=== PATIENT | female | born 1965 | race American Indian/Alaskan Native ===

== ENCOUNTER 2018-11-23 21:18 | Inpatient (IN) | payer BC ==
[2018-11-23 22:22] VITALS: BMI 33.2
[2018-11-23] MEDS ORDERED: Albuterol-Ipratrop 3 mg / 0.5 (3 ml) UD IH STA (22:37)
[2018-11-23 23:28] LABS: HEMOGLOBIN 11.9 g/dL (12.0-16.0); MEAN CELL VOLUME 88.6 fl (80.0-105.0); MEAN CORPUSCULAR HEMOGLOBIN 29.4 pg (25.0-35.0); MEAN CORPUSCULAR HGB CONC 33.1 g/dl (31.0-37.0); MEAN PLATELET VOLUME 10.5 fl (7.0-11.0); RBC 4.05 10^6/uL (3.5-6.1); RED CELL DISTRIBUTION WIDTH 13.9 % (11.5-14.5)
[2018-11-23 23:32] LABS: ALB/GLOB RATIO 1.1 (1.1-1.8); ALBUMIN 4.2 g/dL (3.0-4.8); CALCIUM 9.9 mg/dL (8.4-10.5)
--- NOTE | 2018-11-24 00:32 | ED PDOC ---
Arrival/HPI - General Chief Complaint: Cough, Cold, Congestion Time Seen by Provider: 11/23/18 22:13 Historian: Patient - History of Present Illness Narrative History of Present Illness (Text): 11/24/18 00:32 Zayda Banda is a 53 year old female, with past medical history of asthma and prediabetic, who presents to the emergency department with a productive cough since last week. Patient states she was seen by her PMD for similar complaints 3 days prior and was prescribed Cefuroxime and Promethazine, but denies any significant improvement. Patient denies any fever, chills, chest pain, shortness of breath, nausea, vomiting, diarrhea, urinary symptoms, back pain, neck pain, headache, dizziness, or any other complaints. PMD: Dr. Botello Time/Duration: 1 week Symptom Onset: Gradual Symptom Course: Unchanged Context: Home Past Medical History - Provider Review Nursing Documentation Reviewed: Yes - Infectious Disease Hx of Infectious Diseases: None - Tetanus Immunization Tetanus Immunization: Unknown - Cardiac Hx Cardiac Disorders: Yes Hx Hypertension: Yes - Pulmonary Hx Respiratory Disorders: Yes Hx Asthma: Yes Other/Comment: post nasal drip - Neurological Hx Neurological Disorder: No - HEENT Hx HEENT Disorder: No - Renal Hx Renal Disorder: No - Endocrine/Metabolic Hx Endocrine Disorders: No Other/Comment: Pre diabetes - Hematological/Oncological Hx Blood Disorders: No - Integumentary Hx Dermatological Disorder: No - Musculoskeletal/Rheumatological Hx Musculoskeletal Disorders: Yes Hx Arthritis: Yes Hx Back Pain: Yes Hx Falls: No - Gastrointestinal Hx Gastrointestinal Disorders: No - Genitourinary/Gynecological Hx Genitourinary Disorders: No - Psychiatric Hx Emotional Abuse: No Hx Physical Abuse: No Hx Substance Use: No - Surgical History Hx Hysterectomy: Yes Hx Joint Replacement: Yes (TKR LEFT 2009) Hx Orthopedic Surgery: Yes (right knee sx/left knee) - Anesthesia Hx Anesthesia: Yes Hx Anesthesia Reactions: No Hx Malignant Hyperthermia: No - Suicidal Assessment Feels Threatened In Home Enviroment: No Family/Social History - Physician Review Nursing Documentation Reviewed: Yes Family/Social History: Unknown Family HX Smoking Status: Former Smoker Hx Alcohol Use: No Hx Substance Use: No Hx Substance Use Treatment: No Allergies/Home Meds Allergies/Adverse Reactions: Allergies No Known Allergies Allergy (Verified 05/29/13 09:19) Home Medications: Home Meds Medication Instructions Recorded Confirmed Lisinopril/Hydrochlorothiazide 1 tab PO BID 03/31/15 11/24/18 [Lisinopril-Hydrochlorothiazide 25 mg-20 mg] Amlodipine Besylate 10 mg PO DAILY 04/02/15 11/24/18 Simvastatin 10 mg PO HS 04/02/15 11/24/18 Ascorbate Calcium [Vitamin C] 500 mg PO DAILY 08/22/16 11/24/18 Atenolol [Tenormin] 25 mg PO HS 08/22/16 11/24/18 Cyanocobalamin (Vitamin B-12) 1,000 mcg PO DAILY 08/22/16 11/24/18 [B-12] Spironolactone [Aldactone] 25 mg PO DAILY 08/22/16 11/24/18 oxyCODONE/Acetaminophen [Percocet 1 tab PO Q6 PRN 08/22/16 11/24/18 5/325 mg Tab] Review of Systems - Physician Review All systems were reviewed & negative as marked: Yes - Review of Systems Constitutional: Normal. absent: Fevers Eyes: Normal Respiratory: Cough, Sputum Cardiovascular: Normal. absent: Chest Pain Gastrointestinal: Normal. absent: Abdominal Pain, Diarrhea, Nausea, Vomiting Genitourinary Female: Normal. absent: Dysuria, Frequency, Hematuria, Urine Output Changes Musculoskeletal: Normal. absent: Back Pain, Neck Pain Skin: Normal. absent: Rash Neurological: Normal. absent: Headache, Dizziness Physical Exam Vital Signs Reviewed: Yes Vital Signs Temp Pulse Resp BP Pulse Ox 11/23/18 22:07 98 F 69 21 136/74 95 Temperature: Afebrile Blood Pressure: Normal Pulse: Regular Respiratory Rate: Normal Appearance: Positive for: Well-Appearing, Non-Toxic, Comfortable Pain Distress: None Mental Status: Positive for: Alert and Oriented X 3 - Systems Exam Head: Present: Atraumatic, Normocephalic Pupils: Present: PERRL. No: Non-Reactive Extroacular Muscles: Present: EOMI. No: Entrapment Conjunctiva: Present: Normal Ears: Present: Normal, NORMAL TM, Normal Canal. No: Erythema, TM Bulging, Fluid, TM Perf Mouth: Present: Moist Mucous Membranes Pharnyx: Present: Normal. No: ERYTHEMA, EXUDATE, TONSILS ENLARGED, Peritonsilar Swelling, Uvular Deviation, Muffled/Hoarse Voice, [place], Soft Palate/Uvular Edema Nose (External): Present: Atraumatic Nose (Internal): Present: Normal Inspection Neck: Present: Normal Range of Motion. No: Meningeal Signs, MIDLINE TENDERNESS, Paraspinal Tenderness Respiratory/Chest: Present: Rhonchi (Rhonchi bilaterally). No: Respiratory Distress, Accessory Muscle Use Cardiovascular: Present: Regular Rate and Rhythm, Normal S1, S2. No: Murmurs Neurological: Present: GCS=15, CN II-XII Intact, Speech Normal Skin: Present: Warm, Dry, Normal Color. No: Rashes Psychiatric: Present: Alert, Oriented x 3, Normal Insight, Normal Concentration Medical Decision Making ED Course and Treatment: 11/24/18 00:49 Impression: Zayda Banda is a 53 year old female who presents to the emergency department with a productive cough. Plan: -- EKG -- Chest X-ray -- Labs -- Rapid influenza -- Duoneb -- Reassess and disposition Prior Visits: Notes and results from previous visits were reviewed. Progress Notes: Reviewed EKG, sinus bradycardia at [address]-segment elevations or depressions, no T-wave inversions, normal intervals. 11/24/18 03:45 Chest X-ray reviewed, shows no acute processes. 11/24/18 04:[address] Duarte, covering for Dr. Botello, who is aware and agrees with plan. Pt will go to [facility] observation for bronchitis and leukocytosis. Requests Dr. Lyons on consult. - Lab Interpretations Lab Results: Total Bilirubin 0.3 mg/dL (0.2-1.3) 11/23/18 23:00 AST 33 U/L (14-36) 11/23/18 23:00 ALT 26 U/L (7-56) 11/23/18 23:00 Alkaline Phosphatase 82 U/L (38-126) 11/23/18 23:00 Total Protein 7.9 g/dL (5.8-8.3) 11/23/18 23:00 Albumin 4.2 g/dL (3.0-4.8) 11/23/18 23:00 Globulin 3.7 gm/dL 11/23/18 23:00 Albumin/Globulin Ratio 1.1 (1.1-1.8) 11/23/18 23:00 I have reviewed the lab results: Yes - RAD Interpretation Radiology Orders: 11/23/18 22:36 CHEST PORTABLE [RAD] Stat Sample Prep Technician: ED Physician - EKG Interpretation Interpreted by ED Physician: Yes Type: 12 lead EKG - Medication Orders Current Medication Orders: Discontinued Medications Albuterol/Ipratropium (Duoneb 3 Mg/0.5 Mg (3 Ml) Ud) 3 ml IH ONCE STA Stop: 11/23/18 22:38 Last Admin: 11/23/18 22:39 Dose: 3 ml - Scribe Statement The provider has reviewed the documentation as recorded by the Sejal Buck training under Kacey Campos All medical record entries made by the Sejal were at my direction and personally dictated by me. I have reviewed the chart and agree that the record accurately reflects my personal performance of the history, physical exam, medical decision making, and the department course for this patient. I have also personally directed, reviewed, and agree with the discharge instructions and disposition. Disposition/Present on Arrival - Present on Arrival Any Indicators Present on Arrival: No History of DVT/PE: No History of Uncontrolled Diabetes: No Urinary Catheter: No History of Decub. Ulcer: No History Surgical Site Infection Following: None - Disposition Have Diagnosis and Disposition been Completed?: Yes Diagnosis: SIRS (systemic inflammatory response syndrome), Leukocytosis, Bronchitis Disposition: HOSPITALIZED Disposition Time: 03:48 Patient Problems: Current Active Problems Problem Status Onset Bronchitis Acute Leukocytosis Acute SIRS (systemic inflammatory response syndrome) Acute Condition: STABLE
[2018-11-24] MEDS ORDERED: Azithromycin 500MG/NS 250ml 500 MG/250 ML BAG IV STA (03:46)
[2018-11-24] MEDS ORDERED: cefTRIAXone 1 gm 1 GM/100 ML BAG IV STA ×2 (03:46→11:56)
[2018-11-24] MEDS ORDERED: Sodium Chloride 0.9% 1,000 ML IV STA ×2 (03:48→04:31)
--- NOTE | 2018-11-24 09:45 | RAD ---
Date of service: 11/23/2018 HISTORY: cough COMPARISON: Portable chest 10/05/2014. FINDINGS: LUNGS: No active pulmonary disease. PLEURA: No significant pleural effusion identified, no pneumothorax apparent. CARDIOVASCULAR: No aortic atherosclerotic calcification present. Normal cardiac size. No pulmonary vascular congestion. OSSEOUS STRUCTURES: No significant abnormalities. VISUALIZED UPPER ABDOMEN: Normal. OTHER FINDINGS: None. IMPRESSION: No interval acute cardiopulmonary disease appreciated.
[2018-11-24] MEDS ORDERED: Dextrose 50% SYRINGE Inj (50 ml) IV PRN (11:54)
[2018-11-24] MEDS: POLYETHYLENE GLYCOL 3350 17 GM/Dose PACKET PO SCH ×2 (12:44→17:42)
--- NOTE | 2018-11-24 13:30 | CT ---
Date of service: 11/24/2018 PROCEDURE: CT Chest without contrast HISTORY: cough COMPARISON: Chest CT with contrast 10/05/2014. TECHNIQUE: Contiguous axial images were obtained through the chest without intravenous contrast enhancement. Sagittal and coronal reconstructions were performed. Radiation dose: Total exam DLP = 424.65 mGy-cm. This CT exam was performed using one or more of the following dose reduction techniques: Automated exposure control, adjustment of the mA and/or kV according to patient size, and/or use of iterative reconstruction technique. FINDINGS: LUNGS: Stable benign nodules right upper and middle lobe. No acute pulmonary disease appreciated. Central airways are clear. MEDIASTINUM: Unremarkable thoracic aorta. No aneurysm. Normal sized heart. Main pulmonary artery unremarkable. No vascular congestion. No lymphadenopathy. No aortic atherosclerotic calcification. PLEURA: No pleural fluid. No pneumothorax. BONES: No fracture. No destructive lesion. UPPER ABDOMEN: Grossly unremarkable. OTHER FINDINGS: None. IMPRESSION: Infrequent stable benign nodules right upper and middle lobes. No acute infiltrate, pleural or pericardial effusion. No pulmonary vascular congestion or cardiomegaly. No significant lymphadenopathy. No significant interval change from prior CT angiogram chest 10/05/2014.
[2018-11-24] MEDS: Albuterol-Ipratrop 3 mg / 0.5 (3 ml) UD IH SCH ×2 (13:47→20:30)
[2018-11-24] MEDS: Insulin Lispro (humaLOG) LOW Coverage SC SCH ×2 (17:39→22:00)
--- NOTE | 2018-11-24 19:32 | CON ---
DATE OF CONSULTATION: 11/24/2018 CHIEF COMPLAINT: Cough and congestion and cold times several days. HISTORY OF PRESENT ILLNESS: This is a 53-year-old female with a history of asthma, history of prediabetes, who was admitted to the emergency room. The patient had been coughing since last week, and the patient was given antibiotics, promethazine, cefuroxime antibiotic, and anti-cough medication without any improvement. She denies any fevers, any chills. No chest pain. No abdominal pain or diarrhea. No headaches or blurred vision. REVIEW OF SYSTEMS: Reveals the 12-point review of systems is performed. PAST MEDICAL HISTORY: Significant for asthma, prediabetes, high cholesterol, hypertension, arthritis, and anxiety. PAST SURGICAL HISTORY: Significant for right knee surgery in 2009. ALLERGIES: THE PATIENT HAS NO KNOWN ALLERGIES TO ANY ANTIBIOTICS.. MEDICATIONS: Medications at home reveals the patient to be on oxycodone, spironolactone, statin, atenolol, vitamin C, and amlodipine. PHYSICAL EXAMINATION: GENERAL: The patient is in bed in no acute distress, answering questions appropriately. VITAL SIGNS: Temperature of 98, pulse of 65, respiratory rate of 20, blood pressure is 137/70. HEENT: Examination of HEENT is unremarkable. NECK: Supple. LUNGS: Clear. HEART: Normal S1, S2. ABDOMEN: Soft, nontender. LABORATORY DATA: Laboratory examination reveals the patient's white count of 20,000, hemoglobin of 11. Chemistries revealed the patient's creatinine is 1.3. In 2014, the patient's creatinine was 0.8. The patient's glucose is 264. No differential and a white count of 20,000. Influenza serology is negative. Chemistries revealed the LFTs are normal. The patient had a urine culture done in 09/2014. She has no growth at that time. The patient had a chest x-ray, which was read by Dr. Deepak Carlin, no active disease. The patient's EKG reveals a QTC of 401. The emergency room chart is reviewed, which was written by Dr. Hipolito Richmond. Blood cultures have been ordered. Urine cultures have been ordered. ASSESSMENT AND PLAN: A 53-year-old female with persistent cough and asthma, who was treated with cephalosporin as an outpatient, continues to have persistent cough, hypertension, and diabetes. 1. Leukocytosis. The patient had been on prednisone 20 mg as outpatient, which may explain the leukocytosis, although white count of 20,000 is significant in a patient with acute kidney injury. Her creatinine on the last admission was 0.8 and now it is up to 1.3 in a patient with bronchitis. We will start the patient empirically on Zithromax, order pertussis to rule out Bordetella pertussis, order an HIV test because of her age, order a hemoglobin A1c, blood cultures, urine cultures, sputum cultures, and a CT scan of the chest without contrast because of the creatinine increase, and we will make further recommendations. We will follow closely with you. Gianluca Lyons MD
--- NOTE | 2018-11-24 19:48 | CARD ---
APPROVED REPORT Date of service: 11/23/2018 EKG Measurement Heart [id number] CT 118P46 [id number] <Conclusion> Sinus bradycardia Otherwise normal ECG
--- NOTE | 2018-11-24 21:42 | HP ---
DATE OF EXAM: 11/24/2018 HISTORY OF PRESENT ILLNESS: This is a 53-year-old female who is coming in to the hospital complaining of cough, congestion. She has been having fatigue. The patient states that she had seen Dr. Botello and she was given medications for her cough and respiratory infection. She was given cefuroxime and promethazine. She says that her symptoms have not improved. She came in for further evaluation. PAST MEDICAL HISTORY: Prediabetes and asthma. The patient is having a cough that is productive. She has no abdominal pain or back pain or dysuria, frequency or nocturia. No weakness in the arms or the legs. ALLERGIES: NO KNOWN DRUG ALLERGIES. HOME MEDICATIONS: Lisinopril/hydrochlorothiazide, amlodipine, simvastatin, atenolol, Aldactone, and Percocet. SOCIAL HISTORY: She is not a smoker. She works at a school. She drinks socially. FAMILY HISTORY: Noncontributory. PHYSICAL EXAMINATION: VITAL SIGNS: Temperature is 97.8, pulse of 55, blood pressure is 129/78, respirations 20, O2 saturation 100%, height 5 feet, weight is 170 pounds, and BMI is 33.2. GENERAL: The patient is lying in bed, comfortable, and in no acute distress. HEENT: Atraumatic and normocephalic. Anicteric sclerae. Moist mucosa. [place] conjunctivae. No oral lesions. NECK: No JVD, anterior and posterior adenopathy, thyromegaly, or bruits. CARDIOVASCULAR: S1 and S2 regular. No murmurs, rubs or gallops. LUNGS: Good bilateral air entry. Bilateral mild wheezing. No rales or rhonchi. ABDOMEN: Bowel sounds are positive. Soft, nontender and nondistended. No hepatosplenomegaly. No rebound and no guarding EXTREMITIES: No cyanosis, clubbing, or edema. NEUROLOGIC: No facial asymmetry. Tongue is midline. No uvula deviation. Power is 5/5 upper extremities and lower extremities. Sensation intact in upper extremities and lower extremities. PSYCHIATRIC: She is awake, alert and oriented x3. No anxiety or depression. She has normal affect. GENITOURINARY: No CVA tenderness. VASCULAR: 2+ pulses in the carotid pulses and pedal pulses. SKIN: No erythema or nodules SPINE: Shows normal curvature. LABORATORY DATA: White count of 20, hemoglobin 11.9, and platelet count is 347. The patient's creatinine is 1.3. AST and ALT is 33 and 26. Albumin is 4.2. Serology showed influenza is negative. She had a chest x-ray that shows no acute findings. CT of the chest done shows infrequent stable benign nodules in the upper and middle lobes, no acute infiltrates and no significant changes from prior CT done in 09/2014. ASSESSMENT: 1. Acute asthma. 2. Bronchitis. 3. Hypertension. 4. Dyslipidemia. 5. Obese with a BMI of 33. 6. Constipation. PLAN: The patient is going to be admitted to the hospital. She has been having wheezing. She has an elevated white cell count, she had been on steroids as an outpatient according to the patient. She may have elevated white count because of the steroids. She has urine cultures that have been done as well as blood cultures. She denies any urinary symptoms. The patient does have mildly elevated fingersticks. She is going to be on insulin sliding scale. I will place her on low dose of prednisone to help with her asthma symptoms. She had mild symptoms, so I will continue with old dosing. The patient is on IV fluids. This will be continued. She is on lisinopril for her hypertension. I started her on MiraLax for constipation. She is on Lipitor for dyslipidemia, placed her on a nebulizer treatment. She is given Rocephin today and she was given Rocephin yesterday. I have also asked Dr. Lyons to evaluate the patient for the bronchitis. Jhon Duarte MD
[2018-11-25] MEDS: Albuterol-Ipratrop 3 mg / 0.5 (3 ml) UD IH SCH ×2 (08:25→19:53)
[2018-11-25] MEDS: POLYETHYLENE GLYCOL 3350 17 GM/Dose PACKET PO SCH ×2 (09:06→17:16)
--- NOTE | 2018-11-25 10:39 | CP.PCM.PN ---
<Timothy Caballero - Last Filed: 11/25/18 12:13> Subjective - Date & Time of Evaluation Date of Evaluation: 11/25/18 Time of Evaluation: 06:40 - Subjective Subjective: Timothy Caballero D.O. PGY-3, Internal Medicine Resident, Infectious Disease Progress Note 53-year-old female with a past medical history asthma and prediabetes who presented to [facility] [facility] [place] for complaints of productive cough. Infectious disease consultation was requested for bronchitis. Patient was seen and examined at bedside. Patient states that she feels somewhat better but she still has a very nagging cough. Patient relates that she had some production but overall her cough is mostly dry. Patient had gone to her primary medical doctor and was started on cefuroxime as well as some oral steroids. Patient at this time mostly complaining of the cough. 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 Objective - Vital Signs/Intake and Output Vital Signs (last 24 hours): Temp Pulse Resp BP Pulse Ox 98.1 F 58 L 20 110/68 98 11/25/18 08:37 11/25/18 09:07 11/25/18 08:37 11/25/18 09:07 11/25/18 08:37 Intake and Output: 11/25/18 11/25/18 06:59 18:59 Intake Total 1500 Balance 1500 - Medications Medications: Current Medications Albuterol/Ipratropium (Duoneb 3 Mg/0.5 Mg (3 Ml) Ud) 3 ml IH BIDRESP [facility] Last Admin: 11/24/18 20:30 Dose: 3 ml Atenolol (Tenormin) 25 mg PO HS [facility] Last Admin: 11/24/18 21:39 Dose: Not Given Atorvastatin Calcium (Lipitor) 10 mg PO HS [facility] Last Admin: 11/24/18 21:39 Dose: 10 mg Azithromycin (Zithromax) 500 mg PO DAILY [facility]; Protocol Stop: 11/29/18 11:40 Last Admin: 11/25/18 09:07 Dose: 500 mg Dextrose (Dextrose 50% Inj) 0 ml IV STAT PRN; Protocol PRN Reason: Hypoglycemia Protocol Hydrochlorothiazide (Hydrodiuril) 25 mg PO BID [facility] Last Admin: 11/25/18 09:06 Dose: 25 mg Dextrose (Dextrose 5% In Water 1000 Ml) 1,000 mls @ 0 mls/hr IV .Q0M PRN; Protocol PRN Reason: Hypoglycemia Protocol Insulin Human Lispro (Humalog Low) 0 units SC ACHS [facility]; Protocol Last Admin: 11/24/18 22:00 Dose: Not Given Lisinopril (Zestril) 20 mg PO BID [facility] Last Admin: 11/25/18 09:07 Dose: 20 mg Polyethylene Glycol (Miralax) 17 gm PO BID [facility] Last Admin: 11/25/18 09:06 Dose: 17 gm Prednisone (Prednisone Tab) 20 mg PO DAILY [facility] Last Admin: 11/25/18 09:06 Dose: 20 mg Spironolactone (Aldactone) 25 mg PO DAILY [facility] Last Admin: 11/25/18 09:06 Dose: 25 mg - Labs Labs: 11/23/18 23:00 11/23/18 23:00 - Constitutional Appears: Non-toxic, No Acute Distress - Head Exam Head Exam: ATRAUMATIC, NORMOCEPHALIC - Eye Exam Eye Exam: EOMI. absent: Scleral icterus - ENT Exam ENT Exam: Mucous Membranes Moist, Normal Oropharynx - Neck Exam Neck Exam: Normal Inspection. absent: Lymphadenopathy - Respiratory Exam Additional comments: dry cough during examination, no wheezes, rhonchi, or rales appreciated - Cardiovascular Exam Cardiovascular Exam: RRR, +S1, +S2. absent: Gallop, Rubs - GI/Abdominal Exam GI & Abdominal Exam: Soft. absent: Tenderness - Extremities Exam Extremities Exam: absent: Calf Tenderness, Pedal Edema - Neurological Exam Neurological Exam: Alert, Awake, Oriented x3 - Psychiatric Exam Psychiatric exam: Normal Affect, Normal Mood - Skin Skin Exam: Dry, Warm Assessment and Plan - Assessment and Plan (Free Text) Assessment: 53-year-old female with a past medical history asthma and prediabetes who pr esented to [facility] [place] for complaints of productive cough. Infectious disease consultation was requested for bronchitis. Plan: Leukocytosis Dry cough likely bronchitis Leukocytosis most likely secondary to prednisone use as outpatient Has not had a repeat CBC since admission, repeat one now Afebrile Influenza negative Currently empirically on azithromycin 500 mg p.o. daily day 2 Bordetella pending, HIV pending Sputum cultures pending Cultures negative 2 out of 2 on day 1 Urine culture is negative Patient was seen and examined and case will be discussed with attending physician. Thank you for the pleasure participating in the care of this patient. <Gianluca Lyons - Last Filed: 11/25/18 15:34> Objective - Vital Signs/Intake and Output Vital Signs (last 24 hours): Temp Pulse Resp BP Pulse Ox 98.1 F 58 L 20 110/68 98 11/25/18 08:37 11/25/18 09:07 11/25/18 08:37 11/25/18 09:07 11/25/18 08:37 Intake and Output: 11/25/18 11/25/18 06:59 18:59 Intake Total 1500 Balance 1500 - Medications Medications: Current Medications Albuterol/Ipratropium (Duoneb 3 Mg/0.5 Mg (3 Ml) Ud) 3 ml IH BIDRESP [facility] Last Admin: 11/25/18 08:25 Dose: 3 ml Atenolol (Tenormin) 25 mg PO HS [facility] Last Admin: 11/24/18 21:39 Dose: Not Given Atorvastatin Calcium (Lipitor) 10 mg PO [facility] Last Admin: 11/24/18 21:39 Dose: 10 mg Azithromycin (Zithromax) 500 mg PO DAILY [facility]; Protocol Stop: 11/29/18 11:40 Last Admin: 11/25/18 09:07 Dose: 500 mg Dextrose (Dextrose 50% Inj) 0 ml IV STAT PRN; Protocol PRN Reason: Hypoglycemia Protocol Hydrochlorothiazide (Hydrodiuril) 25 mg PO BID [facility] Last Admin: 11/25/18 09:06 Dose: 25 mg Dextrose (Dextrose 5% In Water 1000 Ml) 1,000 mls @ 0 mls/hr IV .Q0M PRN; Protocol PRN Reason: Hypoglycemia Protocol Insulin Human Lispro (Humalog High) 0 units SC [facility]; Protocol Lisinopril (Zestril) 20 mg PO BID [facility] Last Admin: 11/25/18 09:07 Dose: 20 mg Metformin HCl (Glucophage) 500 mg PO BID [facility] Methylprednisolone (Solu-Medrol) 40 mg IV Q12 [facility] Polyethylene Glycol (Miralax) 17 gm PO BID [facility] Last Admin: 11/25/18 09:06 Dose: 17 gm Spironolactone (Aldactone) 25 mg PO DAILY [facility] Last Admin: 11/25/18 09:06 Dose: 25 mg - Labs Labs: 11/25/18 11:00 11/25/18 11:00 Attending/Attestation - Attestation I have personally seen and examined this patient.: Yes I have fully participated in the care of the patient.: Yes I have reviewed all pertinent clinical information, including history, physical exam and plan: Yes
[2018-11-25 11:24] LABS: BASO # 0.02 K/mm3 (0.0-2.0); BASO % 0.1 % (0.0-3.0); EOS # 0.1 (0.0-0.7); EOS % 0.4 % (1.5-5.0); HEMOGLOBIN 11.4 g/dL (12.0-16.0); LYMPH # 4.2 (1.2-3.4); LYMPH % 29.2 % (22.0-35.0); MEAN CELL VOLUME 90.3 fl (80.0-105.0); MEAN CORPUSCULAR HEMOGLOBIN 29.2 pg (25.0-35.0); MEAN CORPUSCULAR HGB CONC 32.3 g/dl (31.0-37.0); MEAN PLATELET VOLUME 10.4 fl (7.0-11.0); MONO # 0.9 (0.1-0.6); MONO % 6.1 % (1.0-6.0); RBC 3.91 10^6/uL (3.5-6.1); RED CELL DISTRIBUTION WIDTH 14.5 % (11.5-14.5); WHITE BLOOD COUNT 14.2 10^3/uL (4.5-11.0)
[2018-11-25] MEDS: Insulin Lispro (humaLOG) LOW Coverage SC SCH ×2 (11:32→12:00)
[2018-11-25 11:40] LABS: ALB/GLOB RATIO 1.1 (1.1-1.8); ALBUMIN 4.1 g/dL (3.0-4.8); ALT/SGPT 18 U/L (7-56); AST/SGOT 18 U/L (14-36); BLOOD UREA NITROGEN 30 mg/dL (7-21); CALCIUM 9.3 mg/dL (8.4-10.5); GFR NON-AFRICAN AMERICAN 52
[2018-11-25] MEDS ORDERED: Magnesium Citrate Oral SOL (300 ml) PO ONE (12:09)
--- NOTE | 2018-11-25 16:46 | PN ---
DATE: 11/25/2018 SUBJECTIVE: The patient is 53 years old, came to emergency room because of increasing cough, congestion, and high blood sugar. The patient was seen in the office a week ago. The patient states since then her cough has gotten worse, she is wheezing, unable to catch her breath, and she got scared when her blood sugar was running above 300, so she came to ER for further management. OBJECTIVE: GENERAL: She is awake, alert, and oriented. cough and congestion. VITAL SIGNS: She is afebrile, pulse 58, respiration 20, and blood pressure 110/68. LUNGS: Bilateral fair airflow. No rhonchi or crackle. HEART: S1 and S2 audible. ABDOMEN: Soft and nontender. No rebound. No guarding. NEUROLOGIC: The patient is awake and alert, able to communicate. LABORATORY DATA: WBC 14.2, hemoglobin 11.4, hematocrit 35.3, and platelets 238. Chemistry; sodium 138, potassium 4.0, chloride 103, CO2 of 23, BUN 30, and creatinine 1.1. Blood sugar of 227 and hemoglobin A1c 7.3. Urine culture and blood cultures are negative. CT scan of the chest is negative for infiltrates. ASSESSMENT: 1. Asthmatic bronchitis, failed outpatient treatment. 2. Severe bronchospasm. 3. Asthma exacerbation. 4. 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 5. Hypertension. 6. Constipation. 7. osteoarthritis. PLAN: We will give her dose of magnesium citrate. I will give her . She is because of cough medicine that was given as outpatient. I will give her IV Solu-Medrol. Monitor her closely. We will reevaluate the patient in a.m. Mark Botello MD
[2018-11-25] MEDS: Insulin Lispro (HUMAlog) HIGH Coverage SC SCH ×2 (17:15→21:32)
[2018-11-25] MEDS: MethylPREDNISolone 40 mg Vial IV SCH ×2 (17:16→21:33)
[2018-11-26] MEDS: Albuterol-Ipratrop 3 mg / 0.5 (3 ml) UD IH SCH (07:50)
[2018-11-26 07:57] VITALS: RESP 20; TEMP 98.4; O2SAT 97
[2018-11-26] MEDS: Insulin Lispro (HUMAlog) HIGH Coverage SC SCH ×2 (08:01→13:17)
[2018-11-26] MEDS: POLYETHYLENE GLYCOL 3350 17 GM/Dose PACKET PO SCH (10:26)
[2018-11-26 11:06] VITALS: BP 100/64; PULSE 66
[2018-11-26] MEDS: MethylPREDNISolone 40 mg Vial IV SCH (11:10)
--- NOTE | 2018-11-26 11:20 | CP.PCM.PN ---
<Timothy Caballero - Last Filed: 11/26/18 11:17> Subjective - Date & Time of Evaluation Date of Evaluation: 11/26/18 Time of Evaluation: 09:29 - Subjective Subjective: Timothy Caballero D.O. PGY-3, Internal Medicine Resident, Infectious Disease Progress Note 53-year-old female with a past medical history asthma and prediabetes who presented to [facility] for complaints of productive cough. Infectious disease consultation was requested for bronchitis. Patient was seen and examined at bedside. Overall feeling better. Cough still present but better. Objective - Vital Signs/Intake and Output Vital Signs (last 24 hours): Temp Pulse Resp BP Pulse Ox 98.4 F 66 20 100/64 97 11/26/18 07:56 11/26/18 10:58 11/26/18 07:56 11/26/18 10:58 11/26/18 07:56 Intake and Output: 11/26/18 11/26/18 06:59 18:59 Intake Total 660 Balance 660 - Medications Medications: Current Medications Albuterol/Ipratropium (Duoneb 3 Mg/0.5 Mg (3 Ml) Ud) 3 ml IH BIDRESP [facility] Last Admin: 11/26/18 07:50 Dose: 3 ml Atenolol (Tenormin) 25 mg PO HS [facility] Last Admin: 11/25/18 21:33 Dose: 25 mg Atorvastatin Calcium (Lipitor) 10 mg PO HS [facility] Last Admin: 11/25/18 21:33 Dose: 10 mg Azithromycin (Zithromax) 500 mg PO DAILY [facility]; Protocol Stop: 11/29/18 11:40 Last Admin: 11/26/18 11:02 Dose: 500 mg Dextrose (Dextrose 50% Inj) 0 ml IV STAT PRN; Protocol PRN Reason: Hypoglycemia Protocol Hydrochlorothiazide (Hydrodiuril) 25 mg PO BID [facility] Last Admin: 11/26/18 10:57 Dose: 25 mg Dextrose (Dextrose 5% In Water 1000 Ml) 1,000 mls @ 0 mls/hr IV .Q0M PRN; Amy col PRN Reason: Hypoglycemia Protocol Insulin Human Lispro (Humalog High) 0 units SC ACHS [facility]; Protocol Last Admin: 11/26/18 08:01 Dose: 4 unit Lisinopril (Zestril) 20 mg PO BID [facility] Last Admin: 11/26/18 10:58 Dose: 20 mg Metformin HCl (Glucophage) 500 mg PO BID [facility] Last Admin: 11/26/18 11:02 Dose: 500 mg Methylprednisolone (Solu-Medrol) 40 mg IV Q12 [facility] Last Admin: 11/26/18 11:10 Dose: 40 mg Polyethylene Glycol (Miralax) 17 gm PO BID [facility] Last Admin: 11/26/18 10:26 Dose: Not Given Spironolactone (Aldactone) 25 mg PO DAILY [facility] Last Admin: 11/26/18 10:58 Dose: 25 mg - Labs Labs: 11/25/18 11:00 11/25/18 11:00 - Constitutional Appears: Non-toxic, No Acute Distress - Head Exam Head Exam: ATRAUMATIC, NORMOCEPHALIC - Eye Exam Eye Exam: EOMI. absent: Scleral icterus - ENT Exam ENT Exam: Mucous Membranes Moist, Normal Oropharynx - Neck Exam Neck Exam: Normal Inspection. absent: Lymphadenopathy - Respiratory Exam Additional comments: no wheezes, rhonchi, or rales appreciated - Cardiovascular Exam Cardiovascular Exam: RRR, +S1, +S2. absent: Gallop, Rubs - GI/Abdominal Exam GI & Abdominal Exam: Soft. absent: Tenderness - Extremities Exam Extremities Exam: absent: Calf Tenderness, Pedal Edema - Neurological Exam Neurological Exam: Alert, Awake, Oriented x3 - Psychiatric Exam Psychiatric exam: Normal Affect, Normal Mood - Skin Skin Exam: Dry, Warm Assessment and Plan - Assessment and Plan (Free Text) Assessment: 53-year-old female with a past medical history asthma and prediabetes who presented to [facility] for complaints of productive cough. Infectious disease consultation was requested for bronchitis. Plan: Leukocytosis Bronchitis Leukocytosis most likely secondary to prednisone use as out and inpatient Downtrending Afebrile Influenza negative Bordetella pending, HIV pending Cultures negative 2 out of 2 on day 2 Urine culture is negative Sputum cultures pending Continue azithromycin 500 mg p.o. daily day 3 Patient was seen and examined and case will be discussed with attending physician. Thank you for the pleasure participating in the care of this patient. <Gianluca Lyons - Last Filed: 11/26/18 12:46> Objective - Vital Signs/Intake and Output Vital Signs (last 24 hours): Temp Pulse Resp BP Pulse Ox 98.4 F 66 20 100/64 97 11/26/18 07:56 11/26/18 10:58 11/26/18 07:56 11/26/18 10:58 11/26/18 07:56 Intake and Output: 11/26/18 11/26/18 06:59 18:59 Intake Total 660 Balance 660 - Medications Medications: Current Medications Albuterol/Ipratropium (Duoneb 3 Mg/0.5 Mg (3 Ml) Ud) 3 ml IH BIDRESP [facility] Last Admin: 11/26/18 07:50 Dose: 3 ml Atenolol (Tenormin) 25 mg PO HS [facility] Last Admin: 11/25/18 21:33 Dose: 25 mg Atorvastatin Calcium (Lipitor) 10 mg PO HS [facility] Last Admin: 11/25/18 21:33 Dose: 10 mg Azithromycin (Zithromax) 500 mg PO DAILY [facility]; Protocol Stop: 11/29/18 11:40 Last Admin: 11/26/18 11:02 Dose: 500 mg Dextrose (Dextrose 50% Inj) 0 ml IV STAT PRN; Protocol PRN Reason: Hypoglycemia Protocol Hydrochlorothiazide (Hydrodiuril) 25 mg PO BID [facility] Last Admin: 11/26/18 10:57 Dose: 25 mg Dextrose (Dextrose 5% In Water 1000 Ml) 1,000 mls @ 0 mls/hr IV .Q0M PRN; Protocol PRN Reason: Hypoglycemia Protocol Insulin Human Lispro (Humalog High) 0 units SC ACHS [facility]; Protocol Last Admin: 11/26/18 08:01 Dose: 4 unit Lisinopril (Zestril) 20 mg PO BID [facility] Last Admin: 11/26/18 10:58 Dose: 20 mg Metformin HCl (Glucophage) 500 mg PO BID [facility] Last Admin: 11/26/18 11:02 Dose: 500 mg Methylprednisolone (Solu-Medrol) 40 mg IV Q12 [facility] Last Admin: 11/26/18 11:10 Dose: 40 mg Polyethylene Glycol (Miralax) 17 gm PO BID [facility] Last Admin: 11/26/18 10:26 Dose: Not Given Spironolactone (Aldactone) 25 mg PO DAILY [facility] Last Admin: 11/26/18 10:58 Dose: 25 mg - Labs Labs: 11/25/18 11:00 11/25/18 11:00 Attending/Attestation - Attestation I have personally seen and examined this patient.: Yes I have fully participated in the care of the patient.: Yes I have reviewed all pertinent clinical information, including history, physical exam and plan: Yes
--- NOTE | 2018-11-26 20:45 | DS ---
HISTORY OF PRESENT ILLNESS: The patient is a 53-year-old, seen and examined, doing better. Still has cough and congestion with wheezing, but better than yesterday. Did have good bowel movement yesterday. She seems to be feeling better. Although she is allowed to stay one more day, but I would recommend given her situation she is stable enough to go home. PHYSICAL EXAMINATION: GENERAL: She is awake, alert, oriented, communicative. VITAL SIGNS: She is afebrile. Pulse 66, respirations 20, blood pressure 100/64. LUNGS: Bilaterally okay. No expiratory rhonchi. HEART: S1, S2 audible. ABDOMEN: Soft, nontender. No rebound. No guarding. NEUROLOGICAL: She is awake, alert, oriented, and communicative. ASSESSMENT: 1. Asthmatic bronchitis. 2. Uncontrolled sugar, because of being on steroid failed outpatient treatment. 3. Hypertension. 4. Noninsulin-dependent diabetes. PLAN: The patient is being discharged home on CPAP. She will continue her prednisone that she was given in office. I will arrange for nebulizer treatment and albuterol 2.5 mg every 6 hours p.r.n. She is advised to follow up in office. Mark Botello MD
--- NOTE | 2018-12-04 18:45 | PQF ---
PROVIDER RESPONSE TEXT: Moderate persistant REVIEWER QUERY TEXT: Asthma Specificity and Type Asthma is documented in the Medical Record. Please specify the type and severity of asthma and indic ate if this is associated with exacerbation or status asthmaticus. Such as: -- Mild intermittent -- Mild persistent -- Moderate persistent -- Severe persistent -- Exercise induced bronchospasm -- Cough variant asthma -- Other, please specify The patient's Clinical Indicators include: Please see query. Thank you. Query created by: Katlyn Alba on 11/27/2018 2:14 PM Electronically signed by: Mark Botello MD 12/04/2018 6:41 PM
== END 2018-11-26 18:42 | disposition home or self-care (01) | DRG 202 ==
LOC: ED 21:18 → ERH 11-24 03:49 → 3RNO 11-24 05:09 → OBSVTOIN 11-25 17:01
PROVIDERS: ADMIT Internal Medicine; ATTEND Internal Medicine
DX: J45.40 Moderate persistent asthma, uncomplicated (principal); R65.10 Systemic inflammatory response syndrome (SIRS) of non-infectious origin without acute organ dysfunction; I10 Essential (primary) hypertension; E11.65 Type 2 diabetes mellitus with hyperglycemia; T38.0X5A Adverse effect of glucocorticoids and synthetic analogues, initial encounter; E66.9 Obesity, unspecified; Z68.33 Body mass index [BMI] 33.0-33.9, adult; E78.00 Pure hypercholesterolemia, unspecified; E78.5 Hyperlipidemia, unspecified; J20.9 Acute bronchitis, unspecified; K59.00 Constipation, unspecified; M19.90 Unspecified osteoarthritis, unspecified site; Z79.84 Long term (current) use of oral hypoglycemic drugs; Z90.710 Acquired absence of both cervix and uterus; Z96.60 Presence of unspecified orthopedic joint implant